=== PATIENT | female | born 1970 | race Caucasian/White ===

== ENCOUNTER 2021-07-21 17:07 | Emergency (ER) | payer SELFPAY | END 2021-07-21 19:00 | disposition home or self-care (01) | LOC: MADERS 17:07 | DX: S82.61XA Displaced fracture of lateral malleolus of right fibula, initial encounter for closed fracture (principal); I10 Essential (primary) hypertension; K21.9 Gastro-esophageal reflux disease without esophagitis; W10.8XXA Fall (on) (from) other stairs and steps, initial encounter; Z79.899 Other long term (current) drug therapy | CPT/HCPCS: 29515 ==

== ENCOUNTER 2022-11-11 11:30 | Emergency (ER) | payer SELFPAY | END 2022-11-11 12:01 | disposition home or self-care (01) | LOC: MADERS 11:30 | DX: M79.2 Neuralgia and neuritis, unspecified (principal); M25.512 Pain in left shoulder; G89.29 Other chronic pain; I10 Essential (primary) hypertension; K21.9 Gastro-esophageal reflux disease without esophagitis; Z79.899 Other long term (current) drug therapy | CPT/HCPCS: 99283 ==

== ENCOUNTER 2023-09-28 08:26 | Emergency (ER) | payer SELFPAY ==
[2023-09-28] MEDS ORDERED: Ketorolac Tromethamine 60 MG/2 ML VIAL ONE (08:44)
[2023-09-28] MEDS ORDERED: Dexamethasone 10 MG/ML VIAL ONE (08:44)
== END 2023-09-28 10:28 | disposition home or self-care (01) ==
LOC: MADERS 08:26
DX: M25.551 Pain in right hip (principal); I10 Essential (primary) hypertension; Z79.899 Other long term (current) drug therapy
CPT/HCPCS: 96372; J1100; J1885